=== PATIENT | female | born 1955 | race Caucasian/White ===

== ENCOUNTER → 2023-04-29 15:29 | Outpatient (REF) | payer MEDICARE, OTHER, SELFPAY | LOC: RAD 15:29 | PROVIDERS: ATTENDING PHYSICIAN Internal Medicine; FAMILY PHYSICIAN Nurse Practitioner Family | DX: M25.50 Pain in unspecified joint (principal); M25.60 Stiffness of unspecified joint, not elsewhere classified | CPT/HCPCS: 73130 ==

== ENCOUNTER → 2023-05-30 15:00 | Outpatient (REF) | payer MEDICARE, OTHER, SELFPAY | LOC: WDC 15:00 | PROVIDERS: ATTENDING PHYSICIAN Internal Medicine; FAMILY PHYSICIAN Nurse Practitioner Family | DX: Z12.31 Encounter for screening mammogram for malignant neoplasm of breast (principal) | CPT/HCPCS: 77063; 77067 ==

== ENCOUNTER → 2023-07-19 06:58 | Outpatient (REF) | payer MEDICARE, OTHER, SELFPAY | LOC: RAD 06:58 | PROVIDERS: ATTENDING PHYSICIAN Nurse Practitioner Family | DX: Z00.00 Encounter for general adult medical examination without abnormal findings (principal); Z13.6 Encounter for screening for cardiovascular disorders | CPT/HCPCS: 76770 ==

== ENCOUNTER → 2023-08-22 11:20 | Outpatient (REF) | payer MEDICARE, OTHER, SELFPAY | LOC: RAD 11:20 | PROVIDERS: ATTENDING PHYSICIAN Nurse Practitioner Family; FAMILY PHYSICIAN Internal Medicine | DX: N28.89 Other specified disorders of kidney and ureter (principal) | CPT/HCPCS: 74177; Q9967 ==

== ENCOUNTER → 2023-09-19 06:26 | Day surgery (SDC) | payer MEDICARE, OTHER, SELFPAY | LOC: GI 06:26 | PROVIDERS: ATTENDING PHYSICIAN Internal Medicine | DX: Z12.11 Encounter for screening for malignant neoplasm of colon (principal); R19.7 Diarrhea, unspecified | CPT/HCPCS: 45380; 88305 ==

== ENCOUNTER → 2023-10-25 06:59 | Outpatient (REF) | payer MEDICARE, OTHER, SELFPAY | LOC: MRI 06:59 | PROVIDERS: ATTENDING PHYSICIAN Orthopaedic Surgery | DX: M25.512 Pain in left shoulder (principal) | CPT/HCPCS: 73221 ==

== ENCOUNTER → 2023-12-20 11:13 | Outpatient (REF) | payer MEDICARE, OTHER, SELFPAY | LOC: RAD 11:13 | PROVIDERS: ATTENDING PHYSICIAN Internal Medicine | DX: M25.50 Pain in unspecified joint (principal); M25.60 Stiffness of unspecified joint, not elsewhere classified | CPT/HCPCS: 73630 ==

== ENCOUNTER 2024-02-20 16:09 | Emergency (ER) | payer MEDICARE, OTHER, SELFPAY ==
[2024-02-20 16:36] VITALS: BP 117/78
--- NOTE | 2024-02-20 17:37 | ED.GENMED ---
History of Present Illness
General
Chief Complaint: Fall
Source: patient
Time Seen by Provider: 02/20/24 17:15
History of Present Illness
History of Present Illness:
68-year-old female presenting to the emergency department for evaluation after she was walking down her driveway and excellently slipped going up a hill falling onto her right side injuring her right hip. Patient notes that she was able to ambulate
following the fall however has persistent right lateral hip pain. She denies any other injuries. Did not take anything for pain prior to arrival. Denies any previous history of injury or surgery to the right hip.
Past History
Past History
ED Past Medical History: Other (Migraines, DVT)
ED Past Surgical History: and Orthopedic
Social History
Tobacco: Non-smoker
Alcohol: Occasional
Drug: None
Personal:
Living: with family
Review of Systems
Review of Systems
All Other Systems: ROS reviewed and negative except as documented in HPI and ROS
Phy Exam
Physical Exam
Physical Exam:
GENERAL: Alert , in no apparent distress
EYE: conjunctiva clear
Head: Normocephalic atraumatic
NECK: Supple,
ENT: mmm.
LUNGS: no acute respiratory distress
NEUROLOGICAL: Alert and oriented
SKIN: Warm and dry, skin intact.
MUSCULOSKELETAL: Right lower extremity: No obvious deformity, erythema, edema, ecchymosis, abrasions or lacerations. No shortening or external rotation of the right lower extremity. No tenderness over the pelvis but there is some mild tenderness
over lateral aspect of the right proximal femur. Patient allows for flexion, extension, abduction and adduction with minimal pain. She does note the most discomfort with flexion however. Remainder of extremity is otherwise warm and well-perfused
and neurovascularly intact.
PSYCH: Normal and appropriate interaction.
Scores
Heart Failure Risk
Heart Failure Risk Score: Not Applicable
Heart Score for Chest Pain Patients
STEMI patient?: Not applicable
Withdrawal Assessment of Alcohol
Withdrawal Assessment Completed?: Not applicable
Course
Orders/Labs/Results
Orders:
Orders
02/20/24 16:10
Hip, Right 2-3 Views [CR Hip - RT w/wo Pel 2-3 Vw*] Urgent
Comment:
Reason For Exam: fall
Include a pelvis x-ray?: Yes
Vital Signs
Initial and Last Documented VS:
Initial Vital Signs
Temp Pulse Resp BP Pulse Ox
98.1 F 76 18 117/78 98
02/20/24 16:36 02/20/24 16:36 02/20/24 16:36 02/20/24 16:36 02/20/24 16:36
Last Documented Vital Signs
Temp Pulse Resp BP Pulse Ox
98.1 F 77 18 122/75 98
02/20/24 16:36 02/20/24 17:52 02/20/24 17:52 02/20/24 17:52 02/20/24 16:36
MDM/Problems Addressed
Differential Diagnosis Includes:
Fracture, dislocation, contusion
MDM/Problems Addressed:
68-year-old female presenting to the emergency department for evaluation following an accidental fall resulting in right-sided hip pain. X-ray was ordered from triage and does not show any hip or pelvic fracture. Patient is able to ambulate.
Advised NSAIDs/Tylenol as needed for pain, ice and elevation as well. Follow-up with primary care provider as needed. Otherwise stable for discharge home.
*Radiology
Radiology exam reviewed: preliminary read by ED provider (No acute fracture)
*Pulse Oximetry
Patient hypoxic: no
*Critical Care Note
Total Time (30-74mins, 75-104mins- exclusive of procedures): Not Applicable
ED Attending Note
-
Portions of this chart may have been created with voice recognition software.� Occasional wrong word or��sound alike� substitutions may have occurred due to the inherent limitations of voice recognition software.
Discharge Plan
Departure
Patient Disposition: Home (Routine Discharge)
Date of Disposition: 02/20/24
Time of Disposition: 17:37
Patient with high blood pressure during this ER visit?: No
Discharge Problem:
Accidental fall, Hip pain, right
Instructions: Hip Pain ED
Prescriptions:
No Action
naratriptan 2.5 mg Tablet
2.5 mg PO PRN PRN (Reason: headaches)
Xarelto 15 mg Tablet
15 mg PO BID
Referrals:
Joan Peralta CRNP [Family Provider] -
Interventions
Interventions:
*Risk Screen - Suicide Last Done: 02/20/24 16:36
*General Assessment Last Done: 02/20/24 16:36
*Neglect/Abuse Screening Last Done: 02/20/24 16:36
*Nursing Disposition Last Done: 02/20/24 17:52
ED-Musculoskeletal Assessment Last Done: 02/20/24 17:29
ED- Neurological Assessment Last Done: 02/20/24 17:29
ED-Skin Assessment Last Done: 02/20/24 17:29
Discharge Date and Time
Discharge Date/Time: 02/20/24 17:53
Print Language: PANAMANIAN
[2024-02-20 17:52] VITALS: BP 122/75
== END 2024-02-20 17:53 | disposition home or self-care (01) ==
LOC: EMR 16:09
PROVIDERS: EMERGENCY PHYSICIAN Emergency Medicine; FAMILY PHYSICIAN Nurse Practitioner Family
DX: M25.551 Pain in right hip (principal); W01.0XXA Fall on same level from slipping, tripping and stumbling without subsequent striking against object, initial encounter; Z86.718 Personal history of other venous thrombosis and embolism
CPT/HCPCS: 99283; 73502

== ENCOUNTER → 2024-04-26 08:06 | Outpatient (REF) | payer MEDICARE, OTHER, SELFPAY | LOC: MRI 3T 08:06 | PROVIDERS: ATTENDING PHYSICIAN Orthopaedic Surgery; FAMILY PHYSICIAN Nurse Practitioner Family | DX: M25.551 Pain in right hip (principal) | CPT/HCPCS: 73721 ==

== ENCOUNTER → 2024-06-13 11:36 | Outpatient (REF) | payer MEDICARE, OTHER, SELFPAY | LOC: RAD 11:36 | PROVIDERS: ATTENDING PHYSICIAN Physician Assistant; FAMILY PHYSICIAN Nurse Practitioner Family | DX: M25.551 Pain in right hip (principal) | CPT/HCPCS: 73502 ==

== ENCOUNTER → 2024-06-14 08:00 | Outpatient (REF) | payer MEDICARE, OTHER, SELFPAY | LOC: WDC 08:00 | PROVIDERS: ATTENDING PHYSICIAN Nurse Practitioner Family | DX: M81.0 Age-related osteoporosis without current pathological fracture (principal); Z12.31 Encounter for screening mammogram for malignant neoplasm of breast | CPT/HCPCS: 77063; 77067; 77080 ==

== ENCOUNTER 2024-11-26 13:50 | Outpatient (RCR) | payer MEDICARE, OTHER, SELFPAY | END 2024-11-26 23:59 | disposition home or self-care (01) | LOC: RPT 13:50 | PROVIDERS: ATTENDING PHYSICIAN Physical Medicine & Rehabilitation Sports Medicine; FAMILY PHYSICIAN Nurse Practitioner Family | DX: M25.551 Pain in right hip (principal); S76.011D Strain of muscle, fascia and tendon of right hip, subsequent encounter; M76.01 Gluteal tendinitis, right hip; M76.31 Iliotibial band syndrome, right leg; Z73.6 Limitation of activities due to disability; R20.0 Anesthesia of skin; W10.2XXD Fall (on)(from) incline, subsequent encounter | CPT/HCPCS: 97110; 97112; 97140; 97161; 97530 ==

== ENCOUNTER → 2024-12-17 17:28 | Outpatient (REF) | payer MEDICARE, OTHER, SELFPAY | LOC: MRI 3T 17:28 | PROVIDERS: ATTENDING PHYSICIAN Internal Medicine; FAMILY PHYSICIAN Nurse Practitioner Family | DX: K86.2 Cyst of pancreas (principal) | CPT/HCPCS: 74183; A9575 ==

== ENCOUNTER 2024-12-24 08:05 | Outpatient (RCR) | payer MEDICARE, OTHER, SELFPAY | END 2024-12-24 23:59 | disposition home or self-care (01) | LOC: RPT 08:05 | PROVIDERS: ATTENDING PHYSICIAN Physical Medicine & Rehabilitation Sports Medicine; FAMILY PHYSICIAN Nurse Practitioner Family | DX: M25.551 Pain in right hip (principal); S76.011D Strain of muscle, fascia and tendon of right hip, subsequent encounter (principal); M76.01 Gluteal tendinitis, right hip; M76.31 Iliotibial band syndrome, right leg; Z73.6 Limitation of activities due to disability; R20.0 Anesthesia of skin; W10.2XXD Fall (on)(from) incline, subsequent encounter; W10.2XXA Fall (on)(from) incline, initial encounter | CPT/HCPCS: 97110; 97112; 97140; 97530 ==

== ENCOUNTER → 2025-01-28 06:57 | Outpatient (REF) | payer MEDICARE, OTHER, SELFPAY | LOC: MRI 3T 06:57 | PROVIDERS: ATTENDING PHYSICIAN Orthopaedic Surgery; FAMILY PHYSICIAN Nurse Practitioner Family | DX: M25.562 Pain in left knee (principal) | CPT/HCPCS: 73721 ==